=== PATIENT | male | born 1995 | race American Indian/Alaskan Native ===

== ENCOUNTER 2019-12-16 15:00 | Emergency (ER) | payer SELFPAY ==
[2019-12-16 15:20] VITALS: BP 118/68
--- NOTE | 2019-12-16 16:17 | XRay Report ---
CHEST 2 VIEWS INDICATION / CLINICAL INFORMATION: Chest pain. COMPARISON: None available. FINDINGS: SUPPORT DEVICES: None. HEART / MEDIASTINUM: No significant abnormality. LUNGS / PLEURA: No significant pulmonary or pleural abnormality. No pneumothorax. ADDITIONAL FINDINGS: No significant additional findings. IMPRESSION: 1. No acute findings. Signer Name: Guero Nielson MD Signed: 12/16/2019 4:12 PM Workstation Name: [id number]
--- NOTE | 2019-12-16 16:53 | Emergency Department Report ---
Upper Respiratory HPI - HPI Chief Complaint: Sore Throat Stated Complaint: SORE THROAT,CONGESTION Time Seen by Provider: 12/16/19 15:26 Duration: 2 Days URI Symptoms: Rhinorrhea: Yes, Sore Throat: Yes, Ear Pain: No, Cough: Yes, Shortness of Breath: No, Sick Contacts: No, Unable to Take Fluids: No, Urine Output Abnormal: No, Listless Behavior: No Other History: This is a 24-year-old male nontoxic, well nourished in appearance, no acute signs of distress presents to the ED with c/o of productive cough, subective fever, chills, body aches, sore throat, rhinorrhea, nasal congestion x2 days. Patient describes productive cough as yellow mucus production. Patient agrees to sick contact with coworkers for positive COVID. Patient denies any recent travels, long car, recent hospital stays. Patient denies any calf pain or calf tenderness. Patient denies any chest pain, short of breath, nausea, vomiting, hemoptysis, numbness, tingling, headache or stiff neck. - Home Meds and Allergies Home Medications: Previous Rx's Medication Instructions Recorded Last Taken Type Azithromycin [Zithromax Z-NATAN] 250 mg PO DAILY #6 tablet 12/16/19 Unknown Rx Allergies/Adverse Reactions: Allergies Allergy/AdvReac Type Severity Reaction Status Date / Time pollen extracts Allergy Unknown Verified 12/16/19 15:15 anesthetic Allergy Hives Uncoded 12/16/19 15:15 ED Review of Systems ROS: Stated complaint: SORE THROAT,CONGESTION Other details as noted in HPI Constitutional: chills, fever Eyes: denies: eye pain, eye discharge, vision change ENT: throat pain, congestion. denies: ear pain Respiratory: cough. denies: shortness of breath, wheezing Cardiovascular: denies: chest pain, palpitations Endocrine: no symptoms reported Gastrointestinal: denies: abdominal pain, nausea, diarrhea Genitourinary: denies: urgency, dysuria Musculoskeletal: denies: back pain, joint swelling, arthralgia Skin: denies: rash, lesions Neurological: denies: headache, weakness, paresthesias Psychiatric: denies: anxiety, depression Hematological/Lymphatic: denies: easy bleeding, easy bruising ED Past Medical Hx - Past Medical History Previous Medical History?: Yes Additional medical history: aortic valve regurg - Surgical History Past Surgical History?: No - Social History Smoking Status: Never Smoker Substance Use Type: Alcohol, Marijuana - Medications Home Medications: Home Medications Medication Instructions Recorded Confirmed Last Taken Type Azithromycin [Zithromax Z-NATAN] 250 mg PO DAILY #6 tablet 12/16/19 Unknown Rx ED Bronchiolitis Physical Exam - Exam General: Vital signs noted. No distress. Alert and acting appropriately. Neurologic: Alert and oriented, no deficits. Musculoskeletal: Unremarkable. ED Bronchiolitis Tests - Testing Testing: CXR: Normal/Negative ED Physical Exam - General Limitations: No Limitations General appearance: alert, in no apparent distress - Head Head exam: Present: atraumatic, normocephalic - Eye Eye exam: Present: normal appearance - Expanded ENT Exam Expanded Ear exam: Present: normal external inspection Mouth exam: Present: normal external inspection. Absent: drooling, trismus, muffled voice Teeth exam: Present: normal inspection Throat exam: Positive: tonsillar erythema, other (uvula midline). Negative: tonsillomegaly, tonsillar exudate, R peritonsillar mass, L peritonsillar mass - Neck Neck exam: Present: normal inspection, full ROM. Absent: tenderness, meningismus, lymphadenopathy - Respiratory Respiratory exam: Present: normal lung sounds bilaterally. Absent: respiratory distress, wheezes, rales, rhonchi, stridor, chest wall tenderness, accessory muscle use, decreased breath sounds, prolonged expiratory - Cardiovascular Cardiovascular Exam: Present: regular rate, normal rhythm, normal heart sounds. Absent: bradycardia, tachycardia, irregular rhythm, systolic murmur, diastolic murmur, rubs, gallop - Extremities Exam Extremities exam: Present: normal inspection, full ROM - Back Exam Back exam: Present: normal inspection, full ROM - Neurological Exam Neurological exam: Present: alert, oriented X3, normal gait - Psychiatric Psychiatric exam: Present: normal affect, normal mood - Skin Skin exam: Present: warm, dry, intact, normal color. Absent: rash ED Course Vital Signs 12/16/19 15:15 Temperature 98.5 F Pulse Rate 71 Respiratory 18 Rate Blood Pressure 118/68 O2 Sat by Pulse 99 Oximetry - Reevaluation(s) Reevaluation #1: 12/16/19 16:54 Patient is speaking in full sentences with no signs of distress noted. ED Medical Decision Making - Radiology Data Referring Physician: BRITTANY CARRANZA Patient Name: QASIM ARREOLA Date of : 1995 Sex: Male Report Date: 2019-12-16 Report Status: Finalized [facility] [address] [place] [address] XRay Report Signed Patient: QASIM ARREOLA MR#: [id number] : 1995 Acct:[id number] Age/Sex: 24 / M ADM Date: 12/16/19 Loc: ED Attending Dr: Ordering Physician: BRITTANY CARRANZA NP Date of Service: 12/16/19 Procedure(s): XR chest routine 2V Accession Number(s): [id number] cc: BRITTANY CARRANZA NP Fluoro Time In Minutes: CHEST 2 VIEWS INDICATION / CLINICAL INFORMATION: Chest pain. COMPARISON: None available. FINDINGS: SUPPORT DEVICES: None. HEART / MEDIASTINUM: No significant abnormality. LUNGS / PLEURA: No significant pulmonary or pleural abnormality. No pneumothorax. ADDITIONAL FINDINGS: No significant additional findings. IMPRESSION: 1. No acute findings. Signer Name: Guero Nielson MD Signed: 12/16/2019 4:12 PM Workstation Name: [id number] Transcribed By: TL Dictated By: Guero Nielson MD Electronically Authenticated By: Guero Nielson MD Signed Date/Time: 12/16/191611 DD/ 10 TD/TT: - Medical Decision Making This is a 24-year-old male that presents with pharyngitis, possible suspected COVID. Patient is stable and was examined by me. Chest x-ray has been obtained and dictated by radiologist with normal exam. Patient is notified of x-ray results with no questions noted. Patient was instructed and educated on to self quarantine and seek medical attention as soon as possible if symptoms worsen. Will treat pt with zpak. Patient was instructed to increase hydration, rest and take Tylenol for fever episodes. Vitals stable. Patient is nonfebrile and normal heart rate. Patient was instructed Follow-up with a primary care doctor in 3-5 days or if symptoms worsen and continue return to emergency room as soon as possible. At time time of discharge, the patient does not seem toxic or ill in appearance. No acute signs of distress noted. Patient agrees to discharge treatment plan of care. No further questions noted by the patient.nt. Critical care attestation.: If time is entered above; I have spent that time in minutes in the direct care of this critically ill patient, excluding procedure time. ED Disposition Clinical Impression: Suspected COVID-19 virus infection Pharyngitis Qualifiers: Pharyngitis/tonsillitis etiology: unspecified etiology Qualified Code(s): J02.9 - Acute pharyngitis, unspecified Disposition: TO HOME OR SELFCARE Is pt being admited?: No Does the pt Need Aspirin: No Condition: Stable Instructions: COVID-19, Pharyngitis (ED) Additional Instructions: Follow-up with a primary care doctor in 3-5 days or if symptoms worsen and continue return to emergency room as soon as possible. As educated and instructed to you must self quarantine yourself and people that you have been in close contact with similar symptoms for the next 14 days. Please see your nearest health department or primary care doctor that you are referred to for COVID testing. Increased rest, hydration, and take Tylenol as prescribed for fever episode. Prescriptions: Azithromycin [Zithromax Z-NATAN] 250 mg PO DAILY #6 tablet Referrals: PRIMARY MD POOJA [Primary Care Provider] - 3-5 Days VIRGIL NGUYỄN MD [Staff Physician] - 3-5 Days Forms: Work/School Release Form(ED)
== END 2019-12-16 17:23 | disposition home or self-care (01) ==
LOC: ED 15:00
DX: J02.9 Acute pharyngitis, unspecified (principal); F12.10 Cannabis abuse, uncomplicated; Z88.6 Allergy status to analgesic agent; Z91.018 Allergy to other foods
CPT/HCPCS: 71046; 99283

== ENCOUNTER 2020-01-22 09:26 | Emergency (ER) | payer SELFPAY ==
[2020-01-22 09:56] VITALS: BP 130/65
--- NOTE | 2020-01-22 11:28 | Emergency Department Report ---
Chief Complaint: Fever Stated Complaint: FEVER/SORE THROAT/BODY ACHE Time Seen by Provider: 01/22/20 10:27 - HPI History of Present Illness: Patient is a 24-year-old male presents emergency room with complaints of viral- like symptoms that began 3 days ago. He states that he has chills, subjective fever, generalized weakness, fatigue, generalized body aches, nausea. He denies any vomiting, diarrhea, cough, shortness of breath, chest pain, abdominal pain. He states he has a past medical history of mild aortic valve regurg. No allergies to medications. He states that he has not taken anything for fever and 3 days. He states that he had similar symptoms on 12/16/2019 and was seen in the emergency department at that time and was prescribed a Z-Ant but states that he did not get it filled, he states that he did get COVID-19 testing at that time and reports it was negative. Vitals are normal Patient is afebrile, no tachycardia, no hypoxia On exam: Non toxic appearing, no acute distress atraumatic, normocephalic normal appearance of the eyes, PERRL, EOMI, no periorbital edema or ecchymosis moist mucus membranes, no tonsillar hypertrophy or exudates, no posterior oropharynx erythema, uvula is midline, no uvular edema or deviation, normal TMs and canals bilaterally regular heart rate and rhythm, no gallops, no rubs, no murmurs breath sounds are clear bilaterally, no w/r/r, no stridor, no respiratory distress, no accessory muscle use A&O x4, no focal neuro deficit skin is warm, dry, intact Patient is presenting to the emergency room with viral-like symptoms His vitals are normal No abnormality on physical exam as documented in chart Discussed supportive care and symptomatic treatment with patient Patient is presenting with the symptoms during a COVID-19 pandemic, discussed COVID-19 with patient, discussed outpatient testing, discussed self quarantine, discussed strict return precautions Patient does not meet hospital criteria for admission or for hospital COVID-19 testing He has no clinical signs of bacterial pneumonia or bronchitis He has no clinical signs of dehydration Patient be referred to primary care physician Medical screening examination performed and there is no threat to life or limb at this time - Exam Vital Signs: Vital Signs 01/22/20 09:52 Temperature 99.3 F Pulse Rate 95 H Respiratory 20 Rate Blood Pressure 130/65 [Right] O2 Sat by Pulse 100 Oximetry MSE screening note: Focused history and physical exam performed. ED Disposition for MSE Clinical Impression: Viral URI Disposition: MED SCREENING EXAM-LEFT Is pt being admited?: No Does the pt Need Aspirin: No Condition: Stable Instructions: COVID-19, Viral Syndrome (ED) Additional Instructions: Please increase your fluid intake over the next several days. May take Tylenol as needed for fever or body aches. May take [id number] cold symptom relief medication such as Mucinex or TheraFlu. Follow-up with a primary care doctor for reexamination. Return to emergency room immediately for any new or worsening symptoms including but not limited to difficulty breathing, shortness of breath, severe chest pain, unable to tolerate by mouth intake, etc. Please self quarantine for 10 days from the onset of your symptoms. Please do not go out in public. If you are around others at home please wear a mask. If you need to cough or sneeze please do so in a napkin and immediately throw it away and immediately wash your hands. Wash your hands frequently. Wipe everything down. Recommend for you to get COVID-19 testing, may have this done at primary care doctor, health department, [facility] testing center. Referrals: PRIMARY CAREMD [Primary Care Provider] - 2-3 Days VIRGIL NGUYỄN MD [Staff Physician] - 2-3 Days [facility] [Provider Group] - 2-3 Days [facility], [LAB/CONTRACT] - 2-3 Days Forms: Work/School Release Form(ED) Time of Disposition: 11:27 Print Language: OCCITAN
== END 2020-01-22 11:35 | disposition left against medical advice (07) ==
LOC: ED 09:26
DX: J02.9 Acute pharyngitis, unspecified (principal); Z53.21 Procedure and treatment not carried out due to patient leaving prior to being seen by health care provider